=== PATIENT | male | born 1980 | race Caucasian/White ===

== ENCOUNTER 2018-01-13 05:20 | Emergency (ER) | payer SELFPAY ==
[~2018-01-13] VITALS: Ht 172.7 cm; Wt 99.8 kg
[2018-01-13 05:26] VITALS: BP 115/70
--- NOTE | 2018-01-13 05:30 | NUR ---
DAVID ARELLANO FOR PRE BOOK MEDICAL SCREENING. PT C/O ABD PAIN, ABD IS ROUND, SOFT, TENDER, ACTIVE BS X4. PT SITTING IN CHAIR FACIAL GRIMACING. NO PMH Addendum: 01/13/18 at 0548 by [facility] [place] [employer] BROUGHT IN PT.
--- NOTE | 2018-01-13 05:43 | NUR ---
DR LAWSON EVALUATING PT.
[2018-01-13 05:55] VITALS: BP 127/63
--- NOTE | 2018-01-13 05:55 | NUR ---
Patient discharged with v/s stable. Written and verbal after care instructions given and explained. Patient verbalized understanding. Police with in custody. All questions addressed prior to discharge. Advised to follow up with PMD.
== END 2018-01-13 05:55 ==
LOC: MED 05:20
DX: Z02.89 Encounter for other administrative examinations (principal); K40.90 Unilateral inguinal hernia, without obstruction or gangrene, not specified as recurrent
CPT/HCPCS: 99283

== ENCOUNTER 2021-05-13 01:15 | Emergency (ER) | payer MEDICAID ==
[~2021-05-13] VITALS: Ht 172.7 cm; Wt 90.7 kg
[2021-05-13 01:21] VITALS: BP 104/72
[2021-05-13] MEDS ORDERED: KETOROLAC 60 MG/2 ML VIAL IM ONE (01:40)
[2021-05-13] MEDS ORDERED: IBUPROFEN 600 MG TAB PO ONE (02:05)
[2021-05-13] MEDS ORDERED: IBUPROFEN 600 MG TAB ONE (02:05)
[2021-05-13] MEDS ORDERED: ACETAMINOPHEN EXTRA STRENGTH 500 MG TAB PO ONE (02:10)
[2021-05-13 02:28] LABS: APPEARANCE,URINE CLEAR (CLEAR); BILIRUBIN,URINE NEGATIVE (NEGATIVE); BLOOD, URINE NEGATIVE (NEGATIVE); COLOR,URINE YELLOW (YELLOW); LEUKOCYTE ESTERASE ,URINE NEGATIVE (NEGATIVE); NITRITE, URINE NEGATIVE (NEGATIVE); PH,URINE 5.5 (5.0-9.0); UGLUCOSE NEGATIVE (NEGATIVE)
[2021-05-13 02:44] LABS: BARBITURATE, URINE NEGATIVE ng/ml (NEG <=200); BENZODIAZEPINE, URINE NEGATIVE ng/mL (NEG <=200); CANNABINOID, URINE POSITIVE ng/mL (NEG <=50); COCAINE, URINE NEGATIVE ng/mL (NEG <=300); OPIATE, URINE NEGATIVE ng/mL (NEG <=2000); PHENCYCLIDINE SCREEN,URINE NEGATIVE ng/mL (NEG <=25)
[2021-05-13] MEDS ORDERED: NAPR-54 PO (02:55)
[2021-05-13 03:17] VITALS: BP 104/72
== END 2021-05-13 02:58 | disposition home or self-care (01) ==
LOC: MED 01:15
DX: K40.90 Unilateral inguinal hernia, without obstruction or gangrene, not specified as recurrent (principal); F19.20 Other psychoactive substance dependence, uncomplicated; F17.210 Nicotine dependence, cigarettes, uncomplicated; F12.10 Cannabis abuse, uncomplicated; F15.10 Other stimulant abuse, uncomplicated
CPT/HCPCS: 80305; 81003; 99283; J1885